=== PATIENT | male | born 1930 | race Caucasian/White ===

== ENCOUNTER 2017-09-30 11:53 | Outpatient (CLI) | payer MEDICARE, OTHER ==
[2017-09-30 12:16] LABS: #Basophils 0.1 thou/uL (0.0-0.2); #Eosinphils 0.4 thou/uL (0.0-0.7); #Lymphocytes 1.6 thou/uL (1.20-3.40); #Monocytes 0.7 thou/uL (0.11-0.59); #Neutrophils 4.1 thou/uL (1.40-6.50); %Basophils 1.1 % (0.0-1.0); %Eosinophils 5.5 % (0.0-10.0); %Lymphocytes 23.7 % (21.0-51.0); %Neutrophils 59.7 % (42.0-75.0); Hemoglobin 12.7 g/dL (14.0-18.0); Mean Corpuscular HGB CONC 33.4 g/dL (32.0-36.0); Mean Corpuscular Volume 95.7 fl (80.0-94.0); Mean Platelet Volume 6.4 fL (7.4-10.4); Platelet Count 188 thou/uL (130-400); RBC Distribution Width 12.1 % (11.5-14.5); Red Blood Cell (RBC) Count 3.96 mill/uL (4.70-6.10); White Blood Cell (WBC) Count 6.9 thou/uL (4.8-10.8)
[2017-09-30 12:29] LABS: ALT (SGPT) 12 U/L (8-55); AST (SGOT) 19 U/L (5-34); Albumin 4.1 g/dL (3.4-4.8); Alkaline Phosphatase 79 U/L (40-150); Anion Gap 11 mmol/L (10-20); BUN (Urea Nitrogen) 29 mg/dL (8.4-25.7); Bilirubin, Total 0.4 mg/dL (0.2-1.2); Calc. Creatinine Clearance 0 mL/min (70-130); Calcium 9.6 mg/dL (7.8-10.44); Carbon Dioxide 27 mmol/L (23-31); Chloride 107 mmol/L (98-107); Estimated GFR-MDRD 49; Globulin 3.9 g/dL (2.4-3.5); Glucose 90 mg/dL (83-110); Potassium 4.9 mmol/L (3.5-5.1); Sodium 140 mmol/L (136-145)
--- NOTE | 2017-09-30 12:48 | RAD ---
TWO VIEWS LUMBAR SPINE: Indication: Low back pain. FINDINGS: There is advanced facet osteoarthrosis at L5-S1. There is mild disc degenerative disease involving mu ltiple lumbar intervertebral levels. There is Grade I anterolisthesis of L5 on S1. No acute fracture or subluxation is evident. IMPRESSION: Spondylosis of the lumbar spine. POS: LARRY
[2017-09-30 13:03] LABS: Free T4 (Free Thyroxine) 0.82 ng/dL (0.70-1.48); Thyroid Stimulating Hormone 1.7251 uIU/mL (0.35-4.94)
== END 2017-09-30 11:54 | disposition home or self-care (01) ==
LOC: SCSRAD 11:53
PROVIDERS: ATTEND Family Medicine
DX: M54.5 Low back pain (principal); M47.896 Other spondylosis, lumbar region; Z51.81 Encounter for therapeutic drug level monitoring; Z79.899 Other long term (current) drug therapy
CPT/HCPCS: 36415; 72100; 80053; 84439; 84443; 85025

== ENCOUNTER 2017-10-30 12:21 | Outpatient (CLI) | payer MEDICARE, OTHER ==
--- NOTE | 2017-10-30 14:45 | MRI ---
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 Pain x 1 year. Bilateral leg weakness, left greater than right. COMPARISON: None. TECHNIQUE: MRI lumbar spine is performed without intravenous Gadolinium administration. Multisequential, multip lanar imaging is performed FINDINGS: Appropriate T1 marrow signal intensity of the lumbar vertebrae. Vertebral body height is maintained. No fracture. Chronic Schmorl's node along the inferior end plate of L1. No significant STIR hyper intensity to suggest edema or ligamentous injury. Symmetric signal intensity of the psoas muscles. Appropriate signal intensity of the visualized alex d organs. Conus medullaris terminates at the T12-L2 disk space level. T12-L1: Adequate disk hydration. No significant central canal stenosis or foraminal narrowing. L1-L2: Disk desiccation without significant loss of disk space height. No significant central canal stenosis. Foramina are patent. L2-L3: Adequate disk hydration. Mild ligamentum flavum thickening and facet hypertrophy. No signif icant central canal stenosis. Neural foramen are patent bilaterally. L3-L4: Adequate disk hydration. Minimal generalized disk bulge, ligamentum flavum thickening, and f acet hypertrophy do not cause any significant stenosis of the thecal sac. Neural foramen are patent bilaterally. L4-L5: Adequate disk hydration. No significant central canal stenosis. There is narrowing of both subarticular zones secondary to disk material and posterior element hypertrophy. Partial obscuration of bilateral traversing L5 nerve roots. Mild bilateral foraminal narrowing. L5-S1: 3.9 mm of anterolisthesis of L5 upon S1. There is adequate disk hydration. Generalized disk bulge, ligamentum flavum thickening, and facet hypertrophy are present. Mild stenosis of thecal sac . Narrowing of both subarticular zones, right greater than left. Partial obscuration of traversing right S1 nerve root. Minimal narrowing of the left S1 nerve root. Mild bilateral foraminal narrowin g. IMPRESSION: Degenerative change of the lumbar spine as detailed above. There is significant narrowing of bilater al subarticular zones at L4-L5 and L5-S1 with varying degrees of mass effect and obscuration of the r espective traversing nerve roots. POS: LARRY
== END 2017-10-30 12:22 | disposition home or self-care (01) ==
LOC: SCSMRI 12:21
PROVIDERS: ATTEND Family Medicine
DX: M47.896 Other spondylosis, lumbar region (principal); M48.061 Spinal stenosis, lumbar region without neurogenic claudication
CPT/HCPCS: 72148